=== PATIENT | female | born 1980 | race Caucasian/White ===

== ENCOUNTER → 2021-08-28 | Outpatient (CLI) | payer OTHER ==
[~2021-08-28] MED LIST: IBUPROFEN800 MG PO; KEFLEX CAP 500500 MG PO; NORCO 5-325 TA1 EACH PO; NORCO 7.5-3251 EACH PO; VITAMIN C 500500 MG PO; VITAMIN D250000 UNIT PO; WELLBUTRIN SR150 M1 PO
[2021-08-28 10:39] LABS: BUN/CREATININE RATIO 20 (0-10); HEMOGLOBIN 13.4 gm/dl (12.3-15.3); RED BLOOD COUNT 4.56 M/UL (4.00-5.10); WHITE BLOOD COUNT 6.1 K/UL (4.5-11.0)
[2021-08-29 08:17] LABS: VITAMIN D, 25-HYDROXY 16.4 ng/mL (30.0-100.0)
== END ==
LOC: LAB 09:10
PROVIDERS: Nurse Practitioner Family
DX: Z13.220 Encounter for screening for lipoid disorders (principal); N92.0 Excessive and frequent menstruation with regular cycle; F41.9 Anxiety disorder, unspecified; R53.83 Other fatigue
CPT/HCPCS: 36415; 80053; 80061; 81001; 82728; 83540; 83550; 84439; 84443; 84466; 85025

== ENCOUNTER → 2021-08-28 | Outpatient (CLI) | payer OTHER | LOC: EXRD 15:55 | DX: T17.308A Unspecified foreign body in larynx causing other injury, initial encounter (principal); R13.10 Dysphagia, unspecified | CPT/HCPCS: 76536 ==

== ENCOUNTER 2021-10-07 02:34 | Emergency (ER) | payer OTHER ==
[2021-10-07 04:13] LABS: HEMOGLOBIN 12.6 gm/dl (12.3-15.3); RED BLOOD COUNT 4.21 M/UL (4.00-5.10); WHITE BLOOD COUNT 11.9 K/UL (4.5-11.0)
[2021-10-07 04:35] LABS: BUN/CREATININE RATIO 25 (0-10)
[2021-10-07] MEDS ORDERED: ZOFRAN 4 MG TAB4 MG PO (08:44)
[2021-10-07] MEDS ORDERED: HYDROCODON-ACE1 EAC4 PO (08:44)
== END 2021-10-07 08:47 | disposition home or self-care (01) ==
LOC: ER1 02:34
PROVIDERS: Family Medicine
DX: R07.9 Chest pain, unspecified (principal); K80.20 Calculus of gallbladder without cholecystitis without obstruction
CPT/HCPCS: 71046; 76705; 80053; 82550; 82553; 83690; 84484; 84703; 85025; 85379; 93005; 99285; Q9967